=== PATIENT | female | born 1960 | race Caucasian/White ===

== ENCOUNTER 2016-11-26 06:16 | Day surgery (SDC) | payer BC, OTHER ==
[2016-11-26] MEDS ORDERED: Lactated Ringers 1,000 ML IV SCH (06:30)
[2016-11-26] MEDS ORDERED: LIDOCAINE HCL 2% 100 MG/5 ML IJ ONE (07:45)
[2016-11-26] MEDS ORDERED: DIPRIVAN 200 MG/20 ML IV ONE (07:45)
[2016-11-26] MEDS ORDERED: Versed 2 MG/2 ML Injection IV ONE (07:54)
[2016-11-26] MEDS ORDERED: SUBLIMAZE 100 MCG/2 ML IV ONE (07:54)
--- NOTE | 2016-11-26 08:24 | OP ---
SURGERY DATE/TIME: 11/26/2016 0658 PREOPERATIVE DIAGNOSIS: Screening exam. POSTOPERATIVE DIAGNOSIS: Normal colon. PROCEDURE: Colonoscopy. SURGEON: Dr. Jha. ANESTHESIA: MAC. Medications given by anesthesia department. HISTORY: The patient is a 56 year-old white female presenting now for first screening colonoscopy. She was appraised of the risks of the procedure including the risk of perforation, phlebitis, untoward reaction to medication, bleeding, and missed lesions. The patient verbalized her understanding and desired to have the procedure performed. DESCRIPTION OF PROCEDURE: The patient was given the medications by the anesthesia department. She had continuous pulse oximetry, ECG monitoring, intermittent blood pressure monitoring, and tidal CO2 monitoring during the examination. She was placed in the left lateral decubitus position. A digital rectal examination was performed and revealed normal anal sphincter tone and no masses. The flexible Olympus pediatric colonoscope was used to intubate the rectum. A view of the colon was developed sequentially to the cecum. Upon insertion and withdrawal, including a retroflex view in the rectum, no mucosal lesions were encountered. The scope was removed from the patient who tolerated the procedure well and was sent back to OP recovery in good condition. The prep was noted to be fair to good.
[2016-11-26 08:36] VITALS: BP 128/91; PULSE 65; O2SAT 95
== END 2016-11-26 08:27 | disposition home or self-care (01) ==
LOC: SDC 06:16
PROVIDERS: ATTEND Family Medicine
PROC: 0DJD8ZZ Inspection of Lower Intestinal Tract, Via Natural or Artificial Opening Endoscopic (ICD-10-PCS; principal; 2016-11-26)
DX: Z12.11 Encounter for screening for malignant neoplasm of colon (principal)
CPT/HCPCS: 00810; J2250; J2704; J3010